=== PATIENT | female | born 1990 | race Two or more races ===

== ENCOUNTER 2019-05-23 17:44 | Inpatient (IN) | payer OTHER ==
[~2019-05-23] VITALS: Ht 157.5 cm; Wt 97.1 kg
[~2019-05-23 17:44] MED LIST: PRENATAL CAPLE1 EACH PO
== END 2019-05-25 14:04 | disposition home or self-care (01) | DRG 807 ==
LOC: LDR 17:44 → OB/GYN 17:44 → LDR 17:49 → OB/GYN 19:55
PROVIDERS: ADMIT Obstetrics & Gynecology
PROC: 10E0XZZ Delivery of Products of Conception, External Approach (ICD-10-PCS; principal; 2019-05-23)
PROC: 4A1HXCZ Monitoring of Products of Conception, Cardiac Rate, External Approach (ICD-10-PCS; 2019-05-23)
DX: O80 Encounter for full-term uncomplicated delivery (principal); Z37.0 Single live birth; Z3A.41 41 weeks gestation of pregnancy